=== PATIENT | female | born 2000 | race African-American/Black ===

== ENCOUNTER 2023-09-05 19:49 | Emergency (ER) | payer OTHER, SELFPAY ==
[2023-09-05] MEDS ORDERED: Acetaminophen 500 MG TAB ONE (21:03)
[2023-09-05 22:02] LABS: SARS-CoV-2 NAA Rapid Test Not Detected (NotDetected)
== END 2023-09-05 22:16 | disposition home or self-care (01) ==
LOC: CSHERS 19:49
DX: J10.1 Influenza due to other identified influenza virus with other respiratory manifestations (principal); Z20.822 Contact with and (suspected) exposure to COVID-19
CPT/HCPCS: 87081; 87430; 99283

== ENCOUNTER 2024-06-28 11:50 | Emergency (ER) | payer BC ==
[2024-06-28] MEDS ORDERED: Boostrix 0.5 ML (Tdap) VIAL (>/=7 yrs of age) ONE (12:28)
[2024-06-28] MEDS ORDERED: Cephalexin 250 MG CAP ONE (12:28)
== END 2024-06-28 12:40 | disposition home or self-care (01) ==
LOC: CSHERS 11:50
DX: S41.012A Laceration without foreign body of left shoulder, initial encounter (principal); S71.111A Laceration without foreign body, right thigh, initial encounter; S81.811A Laceration without foreign body, right lower leg, initial encounter; J45.909 Unspecified asthma, uncomplicated; F90.9 Attention-deficit hyperactivity disorder, unspecified type; F31.9 Bipolar disorder, unspecified; F20.9 Schizophrenia, unspecified; F17.290 Nicotine dependence, other tobacco product, uncomplicated; W26.8XXA Contact with other sharp object(s), not elsewhere classified, initial encounter; Y93.89 Activity, other specified; Y92.29 Other specified public building as the place of occurrence of the external cause; Z23 Encounter for immunization; Z55.0 Illiteracy and low-level literacy
CPT/HCPCS: 90471; 90715